=== PATIENT | female | born 1945 | race Caucasian/White ===

== ENCOUNTER 2023-12-29 08:16 | Day surgery (SDC) | payer MEDICARE ==
[2023-12-24 12:41] VITALS: BMI 27.3
--- NOTE | 2023-12-29 07:35 | P.GSHP ---
History of Present Illness H&P Date: 12/29/23 CHIEF COMPLAINT: Colon screen HISTORY OF PRESENT ILLNESS: The patient is a 78-year-old female who presents for colon screen. Lower endoscopy was offered for further evaluation and management. PAST MEDICAL HISTORY: Please see list. PAST SURGICAL HISTORY: Please see list. MEDICATIONS: Please see list. ALLERGIES: Please see list. SOCIAL HISTORY: No illicit drug use FAMILY HISTORY: No reports of Crohn disease or ulcerative colitis. REVIEW OF ORGAN SYSTEMS: CONSTITUTIONAL: No reports of fevers or chills. PHYSICAL EXAM: VITAL SIGNS: Stable GENERAL: Well-developed pleasant in no acute distress. HEENT: No scleral icterus. Extraocular movements grossly intact. Moist buccal mucosa. NECK: Supple without lymphadenopathy. CHEST: Unlabored respirations. Equal bilateral excursions. CARDIOVASCULAR: Regular rate and rhythm. Distal 2+ pulses. ABDOMEN: Soft, nontender, nondistended. MUSCULOSKELETAL: No clubbing, cyanosis, or edema. ASSESSMENT: 1. Colon screen. PLAN: 1. Recommend proceeding with a lower endoscopy Past Medical History Past Medical History: Asthma, Cancer Additional Past Medical History / Comment(s): arrythmia,colon CA 2007-no chemo or radiation,Covid infection 2022 History of Any Multi-Drug Resistant Organisms: None Reported Past Surgical History: Appendectomy, Bowel Resection, Hysterectomy, Tonsillectomy Additional Past Surgical History / Comment(s): sigmoidcolon resection,incision hernia repair Past Anesthesia/Blood Transfusion Reactions: No Reported Reaction, Motion Sickness Additional Past Anesthesia/Blood Transfusion Reaction / Comment(s): no problems w/ prior blood transfusion Smoking Status: Never smoker - Past Family History Mother Family Medical History: Cancer Additional Family Medical History / Comment(s): breast CA- at age 42 Father Family Medical History: Cancer Additional Family Medical History / Comment(s): prostate CA Medications and Allergies Home Medications Medication Instructions Recorded Confirmed Type Verapamil Sr [Isoptin Sr] 180 mg PO QAM 12/24/23 12/24/23 History buPROPion HCL [buPROPion HCL SR] 100 mg PO BID 12/24/23 12/24/23 History Allergies Allergy/AdvReac Type Severity Reaction Status Date / Time codeine AdvReac Nausea Verified 12/24/23 12:30
[2023-12-29 09:07] VITALS: RESP 16; TEMP 97.3
[2023-12-29] MEDS: IV FLUID CONTINUATION 1,000 ML IV ONE (09:10)
[2023-12-29] MEDS: LACTATED RINGERS 1,000 ML IV SCH (09:10)
[2023-12-29] MEDS ORDERED: PROPOFOL 10 MG/ML 20 ML VIAL IV ONE (09:21)
[2023-12-29 10:10] VITALS: BP 143/74; PULSE 72
--- NOTE | 2023-12-29 10:17 | P.PCN ---
Date of Procedure: 12/29/23 Description of Procedure: PREOPERATIVE DIAGNOSIS: Personal history of colon cancer Colonoscopy screening. POSTOPERATIVE DIAGNOSIS: Colonoscopy screening. OPERATION: Colonoscopy to the cecum, ileocecal valve and appendiceal orifice. SURGEON: Shanelle Wilson MD. ANESTHESIA: MAC. INDICATIONS: The patient is a 78-year-old female who presents for colonoscopy screening. She has personal history of colon cancer in the past. Benefits and risks were described and informed consent was obtained. DESCRIPTION OF PROCEDURE: The patient had undergone GoLytely prep. The patient had been brought into the operating room and laid in the left lateral decubitus position. After adequate intravenous sedation, the rectum was examined with 2% lidocaine jelly. No external hemorrhoids were encountered. The rectal tone was within normal limits. No lesions were palpated in the rectal vault. An Olympus colonoscope was advanced until the cecum, ileocecal valve and appendiceal orifice were clearly viewed. The prep was excellent. No large scattered diverticulosis was encountered. No colonic polyps were found. No evidence of focal colitis was found. Retroflexion of the scope demonstrated grade 1 internal hemorrhoids without active bleeding or inflammation. The colon was desufflated. The patient had tolerated the procedure well. Withdrawal time was over 6 minutes. FINDINGS: Aronchick preparation quality scale 1 (1-5) Internal hemorrhoids, grade 1 No external prolapsed hemorrhoids. No arteriovenous malformations. No adenomatous polyps. No focal colitis. Small tear along the midline of the perineum RECOMMENDATIONS: Lower endoscopy in 5 2028 Plan - Discharge Summary Discharge Rx Participant: No New Discharge Prescriptions: Continue Verapamil Sr [Isoptin Sr] 180 mg PO QAM buPROPion HCL [buPROPion HCL SR] 100 mg PO BID Discharge Medication List Verapamil Sr [Isoptin Sr] 180 mg PO QAM 12/24/23 [History] buPROPion HCL [buPROPion HCL SR] 100 mg PO BID 12/24/23 [History] Follow up Appointment(s)/Referral(s): Shanelle Wilson MD [STAFF PHYSICIAN] - As Needed Patient Instructions/Handouts: Colonoscopy (GEN) Activity/Diet/Wound Care/Special Instructions: Repeat colonoscopy in 5 years2028 Discharge Disposition: HOME SELF-CARE
== END 2023-12-29 10:32 | disposition home or self-care (01) ==
LOC: ORWHC2ENDO 08:16
PROVIDERS: ATTEND Surgery Plastic and Reconstructive Surgery